=== PATIENT | female | born 1955 | race Caucasian/White ===

== ENCOUNTER 2023-09-14 06:55 | Day surgery (SDC) | payer MEDICARE, OTHER ==
[2023-09-14] MEDS ORDERED: Midazolam 1 MG/ML 2 ML SDV IV ONE (06:56)
[2023-09-14] MEDS ORDERED: Ondansetron 4 MG/2 ML SDV IVPUSH ONE (06:56)
[2023-09-14] MEDS ORDERED: fentaNYL 100 MCG/2 ML SDV IV ONE (06:56)
[2023-09-14] MEDS ORDERED: Sodium Chloride 0.9% 10 ML Syringe FLUSH PRN (07:00)
[2023-09-14] MEDS: Lactated Ringers 1,000 ML IV SCH (08:03)
[2023-09-14] MEDS: acetaZOLAMIDE 500 MG Cap.ER PO ONE (09:03)
[2023-09-14 09:19] VITALS: BP 136/55; PULSE 70
== END 2023-09-14 09:33 | disposition home or self-care (01) ==
LOC: FB.SDS 06:55
PROVIDERS: ATTEND Ophthalmology
DX: E11.36 Type 2 diabetes mellitus with diabetic cataract (principal); H26.9 Unspecified cataract; J44.9 Chronic obstructive pulmonary disease, unspecified; I10 Essential (primary) hypertension; Z79.84 Long term (current) use of oral hypoglycemic drugs; Z79.899 Other long term (current) drug therapy; Z79.82 Long term (current) use of aspirin; Z87.891 Personal history of nicotine dependence
CPT/HCPCS: 00142; 66984; 82947; A9270; J2250; J2405; J3010; J7120; V2632

== ENCOUNTER 2023-09-28 07:23 | Day surgery (SDC) | payer MEDICARE, OTHER ==
[2023-09-28] MEDS ORDERED: Ondansetron 4 MG/2 ML SDV IVPUSH ONE (07:24)
[2023-09-28] MEDS ORDERED: fentaNYL 100 MCG/2 ML SDV IV ONE (07:24)
[2023-09-28] MEDS ORDERED: Midazolam 1 MG/ML 2 ML SDV IV ONE (07:24)
[2023-09-28] MEDS: Lactated Ringers 1,000 ML IV SCH (07:54)
[2023-09-28] MEDS: Sodium Chloride 0.9% 10 ML Syringe FLUSH PRN (07:55)
[2023-09-28] MEDS: acetaZOLAMIDE 500 MG Cap.ER PO ONE (09:05)
[2023-09-28 10:13] VITALS: BP 122/51; PULSE 63
== END 2023-09-28 09:21 | disposition home or self-care (01) ==
LOC: FB.SDS 07:23
PROVIDERS: ATTEND Ophthalmology
DX: E11.36 Type 2 diabetes mellitus with diabetic cataract (principal); H26.9 Unspecified cataract; I10 Essential (primary) hypertension; J44.9 Chronic obstructive pulmonary disease, unspecified; E78.5 Hyperlipidemia, unspecified; Z87.891 Personal history of nicotine dependence; Z79.84 Long term (current) use of oral hypoglycemic drugs; Z79.82 Long term (current) use of aspirin; Z79.899 Other long term (current) drug therapy
CPT/HCPCS: 00142; A9270-GY; J2250; J2405; J3010; J3490; J7120; V2632

== ENCOUNTER 2023-10-08 19:34 | Emergency (ER) | payer MEDICARE, OTHER ==
[2023-10-08] MEDS ORDERED: Hydrocortisone/Neomycin/Polymyxin B Ophth Susp 7.5 ML Bottle EYEBOTH ONE (19:35)
[2023-10-08 20:16] VITALS: PULSE 88
[2023-10-08 20:49] VITALS: BP 166/83
== END 2023-10-08 20:45 | disposition home or self-care (01) ==
LOC: FB.ED 19:34
DX: S05.01XA Injury of conjunctiva and corneal abrasion without foreign body, right eye, initial encounter (principal); I10 Essential (primary) hypertension; J44.9 Chronic obstructive pulmonary disease, unspecified; E11.9 Type 2 diabetes mellitus without complications; Z79.82 Long term (current) use of aspirin; Z79.84 Long term (current) use of oral hypoglycemic drugs; Z79.899 Other long term (current) drug therapy; W20.8XXA Other cause of strike by thrown, projected or falling object, initial encounter
CPT/HCPCS: 99283; A9270